=== PATIENT | male | born 1965 | race Hispanic/Latino ===

== ENCOUNTER → 2020-03-11 | Day surgery (SDC) | payer BC, OTHER ==
[~2020-03-11] MED LIST: HYOSCYAMINE 0.125 MG TAB ONE; PROPOFOL IV EMULSION 10 MG/ML 20 ML VIAL ONE; Z.0.NEXIUM40 MG PO
[2020-03-11 09:43] VITALS: BP 100/81
--- NOTE | 2020-03-11 10:48 | Operative Report ---
DATE OF PROCEDURE: 03/11/2020 SURGEON: Sang Cheung MD PROCEDURE: Colonoscopy with polypectomy. INDICATIONS FOR COLONOSCOPY: Colorectal cancer screening. MEDICATIONS: The patient was done under MAC, please see anesthesiologist's note. PROCEDURE IN DETAIL: With the patient in left lateral decubitus position, a flexible fiberoptic Olympus colonoscope was inserted into the rectum with ease and advanced all the way to the cecum. Mucosa overlying the cecum appeared to be within normal limits. A minute polyp was noted in the ascending colon, that was removed per the cold biopsy forceps. The rest of the ascending, transverse, descending, and sigmoid and rectum appeared to be within normal limits. The scope was then retroflexed into the distal rectum. Small internal hemorrhoids were noted, none of which was actively bleeding. The scope was then straightened out, it was subsequently withdrawn. The patient tolerated the procedure well. IMPRESSION: 1. Ascending colon polyp, minute, removed per cold biopsy forceps. 2. Internal hemorrhoids, none actively bleeding. PLAN: 1. Follow up histology. 2. Initiate high-fiber, low-fat diet. 3. Initiate high-fiber supplement. 4. The patient might benefit from a followup colonoscopy in 5 years. Sang Cheung MD [facility] [place]/JASWINDER /[id number] cc: Amaya Torre DO
== END | disposition home or self-care (01) ==
LOC: OR 07:24
PROVIDERS: ATTEND Internal Medicine Gastroenterology
DX: Z12.11 Encounter for screening for malignant neoplasm of colon (principal); D12.2 Benign neoplasm of ascending colon; K64.8 Other hemorrhoids; K21.9 Gastro-esophageal reflux disease without esophagitis; Z01.810 Encounter for preprocedural cardiovascular examination; Z01.812 Encounter for preprocedural laboratory examination; Z11.59 Encounter for screening for other viral diseases
CPT/HCPCS: 45380; 93005; J2704; U0002; 45378; 45384

== ENCOUNTER → 2021-04-29 | Outpatient (CLI) | payer BC ==
[~2021-04-29] MED LIST changes: -HYOSCYAMINE 0.125 MG TAB ONE; -PROPOFOL IV EMULSION 10 MG/ML 20 ML VIAL ONE
== END ==
LOC: MRI 07:11
PROVIDERS: ATTEND Physician Assistant
DX: M75.41 Impingement syndrome of right shoulder (principal)

== ENCOUNTER → 2021-05-26 | Day surgery (SDC) | payer BC ==
[~2021-05-26] MED LIST changes: +EPINEPHRINE 1 MG/ML 30ML VIAL ONE; +HYDROCODONE/APAP 7.5MG-325MG 1 EA TAB ONE
[2021-05-26 14:50] VITALS: BP 132/89
== END | disposition home or self-care (01) ==
LOC: OR 10:04
PROVIDERS: ATTEND Specialist
DX: M75.121 Complete rotator cuff tear or rupture of right shoulder, not specified as traumatic (principal); M65.811 Other synovitis and tenosynovitis, right shoulder; R00.1 Bradycardia, unspecified; Z01.810 Encounter for preprocedural cardiovascular examination; Z01.812 Encounter for preprocedural laboratory examination; Z20.822 Contact with and (suspected) exposure to COVID-19
CPT/HCPCS: 29827; 93005; C1713; J0690; U0002